=== PATIENT | female | born 1995 | race Caucasian/White ===

== ENCOUNTER 2018-03-07 13:50 | Observation (INO) | payer MEDICAID ==
[~2018-03-07] VITALS: Ht 157.5 cm; Wt 76.2 kg
[2018-03-07] MEDS ORDERED: PNV1TABL50 PO (14:45)
[2018-03-07] MEDS ORDERED: INFLUENZA VIRUS VACCINE(AFLURIA) 0.5ML SYR IM ONE (15:30)
[2018-03-07 15:44] LABS: CLARITY URINE CLEAR (CLEAR); COLOR URINE YELLOW (YELLOW); KETONES URINE NEGATIVE (NEGATIVE); LEUKOCYTE ESTERASE URINE NEGATIVE (NEGATIVE); NITRITE URINE NEGATIVE (NEGATIVE); OCCULT BLOOD URINE NEGATIVE (NEGATIVE); PH URINE 7.5 (4.5-8.0); PROTEIN URINE NEGATIVE (NEGATIVE); SPECIFIC GRAVITY URINE 1.015 (1.005-1.030); UROBILINOGEN URINE 0.2 E.U./dL (0.2-1.0)
[2018-03-07] MEDS: BETAMETHASONE ACET/BETAMET 30 MG/5 ML VIAL IM NR (16:37)
[2018-03-07] MEDS: LACTATED RINGERS 1,000 ML IV SCH ×2 (16:49→21:07)
[2018-03-07] MEDS: TERBUTALINE SULFATE 1MG/ML VIAL SUBCUT NR (18:20)
[2018-03-08] MEDS: TERBUTALINE SULFATE 1MG/ML VIAL SUBCUT NR (04:17)
[2018-03-08] MEDS: LACTATED RINGERS 1,000 ML IV SCH ×2 (05:10→11:32)
[2018-03-08] MEDS: BETAMETHASONE ACET/BETAMET 30 MG/5 ML VIAL IM NR (16:40)
== END 2018-03-08 16:44 | disposition home or self-care (01) ==
LOC: L&D 13:50
PROVIDERS: ADMIT Obstetrics & Gynecology; ATTEND Obstetrics & Gynecology
DX: O62.9 Abnormality of forces of labor, unspecified (principal); Z3A.34 34 weeks gestation of pregnancy
CPT/HCPCS: 81003; 82731; 96372; 99281; G0378; J0702; J3105; 96360; 96361; J7120

== ENCOUNTER 2019-05-06 18:21 | Emergency (ER) | payer MEDICAID, OTHER ==
[~2019-05-06] VITALS: Ht 157.5 cm; Wt 79.0 kg
[~2019-05-06 18:21] MED LIST: PNV1TABL50 PO
[2019-05-06] MEDS ORDERED: VISCOUS LIDOCAINE 2% 15 ML UDC MM STA (23:19)
[2019-05-06] MEDS ORDERED: ONDANSETRON 4MG ODT PO STA (23:19)
[2019-05-06] MEDS ORDERED: MAGNESIUM/ALUMINUM HYDROXIDE/SIMETHICONE 30ML UDC PO ONE (23:30)
[2019-05-07 02:28] LABS: CLARITY URINE CLOUDY (CLEAR); COLOR URINE YELLOW (YELLOW); KETONES URINE 2+ (NEGATIVE); LEUKOCYTE ESTERASE URINE TRACE (NEGATIVE); NITRITE URINE NEGATIVE (NEGATIVE); OCCULT BLOOD URINE NEGATIVE (NEGATIVE); PH URINE 8.5 (4.5-8.0); PROTEIN URINE NEGATIVE (NEGATIVE); SPECIFIC GRAVITY URINE 1.017 (1.005-1.030); UROBILINOGEN URINE 0.2 E.U./dL (0.2-1.0)
[2019-05-07 02:43] LABS: BASOPHILS % 0.6 % (0.0-2.0); EOSINOPHILS % 1.9 % (0.0-5.0); HEMATOCRIT. 34.6 % (36.0-48.0); HEMOGLOBIN. 11.8 g/dL (12.0-16.0); LYMPHOCYTES % 26.2 % (20.0-50.0); MEAN CORPUSCULAR HEMOGLOBIN 28.8 pg (28.0-32.0); MEAN CORPUSCULAR VOLUME 84.6 fL (81.0-99.0); MEAN PLATELET VOLUME 10.1 fl (7.4-10.4); MONOCYTES % 7.1 % (2.0-8.0); NEUTROPHILS % 64.2 % (40.0-76.0); PLATELET 227 x1000/uL (130-400); RED BLOOD CELL COUNT 4.09 mill/uL (4.2-5.4); RED CELL DISTRIBUTION WIDTH 15.8 % (11.6-14.6)
[2019-05-07 02:49] LABS: CHLORIDE 107 mEq/L (98-107)
[2019-05-07] MEDS ORDERED: NITROFURANTOIN 100MG M/M CAPSULE PO NR (03:00)
[2019-05-07] MEDS ORDERED: METRONIDAZOLE 500MG TABLET PO ONE (04:00)
[2019-05-07] MEDS ORDERED: CEPHALEXIN 250MG CAPSULE PO ONE (04:00)
[2019-05-07 05:30] VITALS: BP 105/65
== END 2019-05-07 05:38 | disposition home or self-care (01) ==
LOC: ER 18:21
DX: O26.892 Other specified pregnancy related conditions, second trimester (principal); O99.612 Diseases of the digestive system complicating pregnancy, second trimester; K80.20 Calculus of gallbladder without cholecystitis without obstruction; Z3A.16 16 weeks gestation of pregnancy
CPT/HCPCS: 36415; 76700; 76805; 76817; 80053; 81003; 83690; 85025; 99284; Q0162